=== PATIENT | male | born 1940 | race Two or more races ===

== ENCOUNTER 2025-06-14 18:22 | Inpatient (IN) | payer MEDICARE, OTHER ==
[~2025-06-14] VITALS: Ht 167.6 cm; Wt 83.0 kg
[2025-06-14 18:43] VITALS: BP 100/57
[2025-06-14 19:15] LABS: PLATELET COUNT (AUTO) 177 K/uL (152-348); RED BLOOD CELL COUNT(AUTO) 4.02 MIL/uL (4.06-5.63); RED CELL DISTRIBUTION WIDTH 16.6 % (12.1-16.2); WHITE BLOOD COUNT (AUTO) 6.6 K/uL (3.6-10.2)
[2025-06-14 19:25] LABS: *BILIRUBIN,URIN NEGATIVE (NEGATIVE); *BLOOD, URINE NEGATIVE (NEGATIVE); *CLARITY,URINE CLEAR (CLEAR); *COLOR,URINE YELLOW (YELLOW); *KETONES,URINE NEGATIVE (NEGATIVE); *PROTEIN,URINE 1+ (NEGATIVE); *UROBILINOGEN,URINE 1.0 E.U./dl (NORMAL); LEUKOCYTE ESTERASE ,URINE NEGATIVE (NEGATIVE); NITRITE, URINE NEGATIVE (NEGATIVE); UGLUCOSE 2+ (NEGATIVE)
[2025-06-14 19:28] LABS: CREATININE 2.2 mg/dL (0.6-1.3); SODIUM SERUM 143 mmol/L (136-145); UREA NITROGEN, BLOOD 32 mg/dL (7-18)
[2025-06-14 19:29] LABS: ETHANOL < 3 MG/DL (0-10)
[2025-06-14 19:33] LABS: *AMPHETAMINE, URINE NEGATIVE (NEGATIVE); *BARBITURATE, URINE NEGATIVE (NEGATIVE); *BENZODIAZEPINE, URINE NEGATIVE (NEGATIVE); *CANNABINOID, URINE NEGATIVE (NEGATIVE); *COCCAINE, URINE NEGATIVE (NEGATIVE); *OPIATE, URINE NEGATIVE (NEGATIVE); *PHENCYCLIDINE SCREEN,URINE NEGATIVE (NEGATIVE); FENTANYL, URINE NEGATIVE (NEGATIVE)
[2025-06-14 19:43] LABS: SQUAMOUS EPITHELIAL CELL,UR NONE SEEN /HPF (NONE SEEN)
[2025-06-14 19:44] LABS: ASPARTATE AMINOTRANSFERASE 26 U/L (15-37); TOTAL PROTEIN, SERUM 6.7 g/dL (6.4-8.2)
[2025-06-14] MEDS ORDERED: AMIO200T PO (19:53)
[2025-06-14] MEDS ORDERED: DOCU100T2 (19:53)
[2025-06-14] MEDS ORDERED: ATOR80TA (19:53)
[2025-06-14] MEDS ORDERED: BISA10SU95 PR (19:53)
[2025-06-14] MEDS ORDERED: ACET325T53 PO ×2 (19:53→21:30)
[2025-06-14] MEDS ORDERED: APIX2.5T (19:53)
[2025-06-14] MEDS ORDERED: DEXTROSE 50% 50 ML DISP.SYRIN IV PRN (20:15)
[2025-06-14] MEDS ORDERED: HYDROCODONE/APAP 10-325 MG TABLET ONE ×2 (21:05→21:35)
[2025-06-14] MEDS: HYDROCODONE/APAP 10-325 MG TABLET PO ONE ×2 (21:06→21:36)
[2025-06-14] MEDS ORDERED: INSU100I26 SQ (21:30)
[2025-06-14] MEDS ORDERED: ATOR80TA PO (21:30)
[2025-06-14] MEDS ORDERED: GABA300C PO (21:30)
[2025-06-14] MEDS ORDERED: BISA10SU95 RC (21:30)
[2025-06-14] MEDS ORDERED: AMIO100T4 PO (21:30)
[2025-06-15] MEDS: BLOOD SUGAR DIAGNOSTIC 1 EACH STRIP VI SCH (01:00)
[2025-06-15] MEDS ORDERED: MAGNESIUM HYDROXIDE 30 ML LIQUID UDC PO PRN (01:00)
[2025-06-15] MEDS ORDERED: MAG HYDROX/AL HYDROX/SIMETH 30 ML LIQUID UDC PO PRN (01:00)
[2025-06-15] MEDS ORDERED: QUETIAPINE FUMARATE 25 MG TABLET PO PRN ×2 (01:00→01:30)
[2025-06-15] MEDS: ZOLPIDEM 5 MG TABLET PO PRN (01:29)
[2025-06-15] MEDS: ATORVASTATIN 40 MG TABLET PO SCH (01:30)
[2025-06-15 02:00] VITALS: BP 108/57; TEMP 97.9; O2SAT 96
[2025-06-15] MEDS: ACETAMINOPHEN 325 MG TABLET PO PRN (04:22)
[2025-06-15] MEDS ORDERED: MAG-55 PO (05:28)
[2025-06-15] MEDS ORDERED: EMPA25TA PO (05:28)
[2025-06-15] MEDS ORDERED: INSU100I26 SQ (05:28)
[2025-06-15] MEDS ORDERED: LEVO88TA PO (05:28)
[2025-06-15] MEDS ORDERED: METO-358 PO (05:28)
[2025-06-15] MEDS ORDERED: INSU100V28 SQ ×3 (05:28→08:49)
[2025-06-15] MEDS ORDERED: ISOS30TA9 PO (05:28)
[2025-06-15] MEDS ORDERED: MAGN400O6 PO (05:28)
[2025-06-15 08:14] VITALS: BP 128/62; TEMP 98.2; O2SAT 100
[2025-06-15 08:33] LABS: IRON, SERUM 113.0 ug/dL (50-175)
[2025-06-15] MEDS ORDERED: NIFE90TA61 PO (08:49)
[2025-06-15] MEDS ORDERED: HYDR-3980 PO (08:49)
[2025-06-15] MEDS ORDERED: NALO4SPR NS (08:49)
[2025-06-15] MEDS ORDERED: NA P133E RC (08:49)
[2025-06-15] MEDS ORDERED: PANT40TA2 PO (08:49)
[2025-06-15] MEDS ORDERED: NITR0.4T48 SL (08:49)
[2025-06-15] MEDS: AMIODARONE HCL 200 MG TABLET PO SCH (09:00)
[2025-06-15] MEDS: APIXABAN 2.5 MG TABLET PO SCH (09:38)
[2025-06-15] MEDS: QUETIAPINE FUMARATE 25 MG TABLET PO SCH (11:41)
[2025-06-15] MEDS: INSULIN REGULAR, HUMAN 1000 UNIT/10 ML VIAL SQ PRN (11:41)
[2025-06-15 15:03] VITALS: BP 119/68; TEMP 98.2; O2SAT 99
[2025-06-15 19:47] VITALS: BP 122/60; TEMP 98.1; O2SAT 98
[2025-06-16] MEDS: ZOLPIDEM 5 MG TABLET PO PRN (02:12)
[2025-06-16 08:04] VITALS: BP 146/85; TEMP 98.2; O2SAT 100
[2025-06-16] MEDS ORDERED: GABAPENTIN 300 MG CAPSULE PO SCH ×2 (13:00→17:00)
[2025-06-16 16:37] VITALS: BP 128/85; TEMP 98.2; O2SAT 99
[2025-06-16 20:00] VITALS: BP 140/91; TEMP 97.5; O2SAT 99
[2025-06-16] MEDS: GABAPENTIN 300 MG CAPSULE PO SCH (20:11)
[2025-06-16] MEDS: INSULIN GLARGINE,HUM 300 UNITS/3 ML CARTRIDGE SQ SCH (20:17)
[2025-06-16] MEDS ORDERED: ATORVASTATIN 40 MG TABLET PO SCH (21:00)
[2025-06-16] MEDS: APIXABAN 2.5 MG TABLET PO SCH (21:15)
[2025-06-17] MEDS: PANTOPRAZOLE SODIUM 40 MG TABLET.DR PO SCH (06:20)
[2025-06-17] MEDS: LEVOTHYROXINE SODIUM 88 MCG TABLET PO SCH (06:20)
[2025-06-17 08:10] VITALS: BP 118/77; TEMP 98.2; O2SAT 100
[2025-06-17] MEDS: METOPROLOL SUCCINATE XL 50 MG TAB.SR.24H PO SCH (08:56)
[2025-06-17] MEDS: DIVALPROEX 125 MG TABLET.DR PO SCH (13:45)
[2025-06-17 16:27] VITALS: BP 120/71; TEMP 98.2; O2SAT 99
[2025-06-17 20:00] VITALS: BP 103/53; TEMP 98.2; O2SAT 97
[2025-06-17] MEDS: INSULIN GLARGINE,HUM 300 UNITS/3 ML CARTRIDGE SQ SCH (20:13)
[2025-06-17] MEDS: QUETIAPINE FUMARATE 25 MG TABLET PO SCH (20:23)
[2025-06-18 08:22] VITALS: BP 133/63; TEMP 98.2; O2SAT 100
[2025-06-18] MEDS: METOPROLOL SUCCINATE XL 50 MG TAB.SR.24H PO SCH (08:36)
[2025-06-18 16:59] VITALS: BP 127/61; TEMP 98.2; O2SAT 99
[2025-06-18 20:00] VITALS: BP 113/60; TEMP 98.4; O2SAT 98
[2025-06-19 08:00] VITALS: BP 92/47; TEMP 97.7; O2SAT 100
[2025-06-19 16:00] VITALS: BP 101/54; TEMP 97.7; O2SAT 100
[2025-06-19 20:28] VITALS: BP 106/52; TEMP 97.9; O2SAT 99
[2025-06-20 08:23] VITALS: BP 124/78; TEMP 98; O2SAT 98
[2025-06-20 08:23] LABS: PLATELET COUNT (AUTO) 186 K/uL (152-348); RED BLOOD CELL COUNT(AUTO) 4.61 MIL/uL (4.06-5.63); RED CELL DISTRIBUTION WIDTH 16.5 % (12.1-16.2); WHITE BLOOD COUNT (AUTO) 6.9 K/uL (3.6-10.2)
[2025-06-20 08:37] LABS: ASPARTATE AMINOTRANSFERASE 9 U/L (15-37); CREATINE KINASE, TOTAL 33 U/L (39-308); CREATININE 1.9 mg/dL (0.6-1.3); SODIUM SERUM 141 mmol/L (136-145); TOTAL PROTEIN, SERUM 7.1 g/dL (6.4-8.2); UREA NITROGEN, BLOOD 34 mg/dL (7-18)
[2025-06-20] MEDS: DIVALPROEX 125 MG TABLET.DR PO SCH (13:57)
[2025-06-20 15:24] VITALS: BP 136/53; TEMP 98; O2SAT 99
[2025-06-20 20:03] VITALS: BP 130/60; TEMP 98.1; O2SAT 98
[2025-06-21 06:07] LABS: PTH, INTACT 42 pg/mL (15-65)
[2025-06-21 08:06] VITALS: BP 125/70; TEMP 98.2; O2SAT 99
[2025-06-21 15:25] VITALS: BP 98/59; TEMP 98.2; O2SAT 98
[2025-06-21 20:00] VITALS: BP 113/55; TEMP 98.1; O2SAT 99
[2025-06-21] MEDS: QUETIAPINE FUMARATE 25 MG TABLET PO SCH (20:56)
[2025-06-22 07:53] VITALS: BP 126/63; TEMP 98; O2SAT 100
[2025-06-22 16:35] VITALS: BP 114/73; TEMP 98.9; O2SAT 97
[2025-06-22 19:54] VITALS: BP 110/56; TEMP 98.2; O2SAT 98
[2025-06-22] MEDS: ATORVASTATIN 20 MG TABLET PO SCH (20:42)
[2025-06-23 08:34] VITALS: BP 146/84; TEMP 98.2; O2SAT 98
[2025-06-23] MEDS: HYDROCODONE/APAP 5-325MG TABLET PO PRN (13:41)
[2025-06-23 16:36] VITALS: BP 94/47; TEMP 98.2; O2SAT 98
[2025-06-23 19:59] VITALS: BP 131/56; TEMP 98.1; O2SAT 99
[2025-06-24 07:17] LABS: PLATELET COUNT (AUTO) 193 K/uL (152-348); RED BLOOD CELL COUNT(AUTO) 4.17 MIL/uL (4.06-5.63); RED CELL DISTRIBUTION WIDTH 16.8 % (12.1-16.2); WHITE BLOOD COUNT (AUTO) 7.1 K/uL (3.6-10.2)
[2025-06-24 07:21] LABS: ASPARTATE AMINOTRANSFERASE 15 U/L (15-37); CREATININE 1.6 mg/dL (0.6-1.3); SODIUM SERUM 138 mmol/L (136-145); TOTAL PROTEIN, SERUM 6.2 g/dL (6.4-8.2); UREA NITROGEN, BLOOD 30 mg/dL (7-18); VALPROIC ACID 14 ug/mL (50-100)
[2025-06-24 08:22] VITALS: BP 104/44; TEMP 98.2; O2SAT 98
[2025-06-24] MEDS ORDERED: DIVALPROEX 125 MG TABLET.DR PO SCH (14:00)
[2025-06-24] MEDS: DIVALPROEX 250 MG TABLET.DR PO SCH (14:11)
[2025-06-24 19:53] VITALS: BP 106/54; TEMP 98.3; O2SAT 96
[2025-06-25 08:57] VITALS: BP 103/63; TEMP 98.2; O2SAT 98
[2025-06-25 16:52] VITALS: BP 108/61; TEMP 98.2; O2SAT 98
[2025-06-25 20:00] VITALS: BP 122/56; TEMP 97.3; O2SAT 100
[2025-06-26 08:00] VITALS: BP 104/51; TEMP 97.2; O2SAT 97
[2025-06-26 16:00] VITALS: BP 104/63; TEMP 97.5; O2SAT 99
[2025-06-26 20:00] VITALS: BP 118/72; TEMP 97.2; O2SAT 97
[2025-06-27 08:01] VITALS: BP 106/66; TEMP 98.2; O2SAT 98
[2025-06-27 09:00] VITALS: BP 106/66
[2025-06-27] MEDS: METOPROLOL SUCCINATE XL 25 MG TAB.SR.24H PO SCH (09:00)
== END 2025-06-27 10:55 | DRG 885 ==
LOC: ER 18:42 → GPS 20:22
PROVIDERS: ADMIT Psychiatry & Neurology Psychiatry; ATTEND Nurse Practitioner Family
DX: F39 Unspecified mood [affective] disorder (principal); N18.9 Chronic kidney disease, unspecified; G93.41 Metabolic encephalopathy; E44.0 Moderate protein-calorie malnutrition; F03.911 Unspecified dementia, unspecified severity, with agitation; F03.92 Unspecified dementia, unspecified severity, with psychotic disturbance; E11.22 Type 2 diabetes mellitus with diabetic chronic kidney disease; J44.9 Chronic obstructive pulmonary disease, unspecified; E78.5 Hyperlipidemia, unspecified; N40.0 Benign prostatic hyperplasia without lower urinary tract symptoms; I12.9 Hypertensive chronic kidney disease with stage 1 through stage 4 chronic kidney disease, or unspecified chronic kidney disease; Z88.6 Allergy status to analgesic agent; Z88.0 Allergy status to penicillin; Z88.8 Allergy status to other drugs, medicaments and biological substances; E03.9 Hypothyroidism, unspecified; E11.51 Type 2 diabetes mellitus with diabetic peripheral angiopathy without gangrene; E88.09 Other disorders of plasma-protein metabolism, not elsewhere classified; Z79.899 Other long term (current) drug therapy; Z91.148 Patient's other noncompliance with medication regimen for other reason; I48.0 Paroxysmal atrial fibrillation; Z79.01 Long term (current) use of anticoagulants; D63.1 Anemia in chronic kidney disease
CPT/HCPCS: 36415; 71045; 76770; 80164; 82746; 83550; 83735; 83970; 84100; 84155; 84165; 84443; 85025; 93005; G0480; J1815; J3490